=== PATIENT | female | born 1945 | race Hispanic/Latino ===

== ENCOUNTER 2019-01-27 06:27 | Day surgery (SDC) | payer MEDICARE ==
[2019-01-26 10:26] VITALS: BMI 22.6
--- NOTE | 2019-01-26 14:06 | HP ---
HISTORY OF PRESENT ILLNESS: Ms. Kennedy is a very pleasant 73-year-old woman and sister of one of her anesthesiologist here in town, Dr. Frey. She is referred by Dr. Resendiz for evaluation of bilateral L4 radicular patterns of pain as well as localized back pain. She has had excellent relief with each injection, but the pain has increasing. She has an MRI from [facility] in [place], where she has bilateral neuroforaminal narrowing at L4-L5 as well as lateral recess stenosis at L3-L4 and L4-L5. Flexion-extension imaging reveals a mild grade 1 slip at L4-L5, which is stable with all movement. She hopes to discuss surgical intervention at this time. PAST MEDICAL HISTORY: Significant for hypothyroidism, diabetes, gastroesophageal reflux disease. CURRENT MEDICATIONS: [place] Thyroid, metformin, estrogen, testosterone implantable pellet, atorvastatin, omeprazole, Neurontin. PAST SURGICAL HISTORY: Hysterectomy, cataracts bilaterally, left wrist reduction and plate. ALLERGIES: SULFA DRUGS AND CIPRO. PHYSICAL EXAMINATION: GENERAL: The patient is alert and oriented x3. EXTREMITIES: Gait is mildly antalgic. Lower extremity motor exam is normal. ASSESSMENT: Lumbar stenosis with radiculopathy. PLAN: Dr. Boyle met with the patient, reviewed imaging, advocated for an L3-L5 decompression. He explained to the patient the risks, benefits, and alternatives to the procedure. The patient expressed understanding for surgery and elected to move forward with surgery as discussed. I do believe the patient is mentally competent and capable of making medical decisions for herself. We will move forward with surgery as planned. Job ID: [id number]
[2019-01-27] MEDS ORDERED: ceFAZolin Sodium (SDC) 2 GM/100 ML BAG ONE ×2 (08:09→12:59)
[2019-01-27] MEDS ORDERED: Thrombin 5000 UNITS/5 ML VIAL ONE (09:10)
[2019-01-27] MEDS ORDERED: Midazolam HCl 2 mg/2 ml Vial ONE (09:20)
--- NOTE | 2019-01-27 09:52 | PRG ---
DATE OF SERVICE: 01/27/2019 Ms. Kennedy is a pleasant 73-year-old female who was referred to us by Dr. Fernando Resendiz for symptoms of predominantly neurogenic claudication. He has been treating her for years with epidural steroid injections and they have reached a point where they have lost effectiveness. The patient has been seen in our clinic in the outpatient setting by Forest Scales who evaluated her and reviewed the images and she indicated wished to move forward with surgery, which in her situation would be a 2-level lumbar decompression spanning L3 through L5. I subsequent to that time called and spoke to her on the phone to again review with her, her imaging, diagnosis, symptoms and the planned surgical procedure. She provided informed consent over the phone at that time. I met with her in person this morning to again review all of these elements. She continues to have symptoms with her right leg bothers her more than the left. She has symptoms of neurogenic claudication as well as lumbar radiculopathy. She has an MRI scan, which shows moderate to severe stenosis spanning L3 through L5. The plan will be to perform a L3 through L5 lumbar decompression. Job ID: [id number]
[2019-01-27] MEDS ORDERED: Fentanyl 250 MCG/5 ML VIAL ONE (10:03)
[2019-01-27] MEDS ORDERED: Bupivacaine HCl 0.5%/Epinephrine 1:200,000/PF 30 ml Vial ONE (10:19)
[2019-01-27] MEDS ORDERED: Fentanyl 100 MCG/2 ML VIAL ONE (12:05)
--- NOTE | 2019-01-27 12:06 | OP ---
DATE OF PROCEDURE: 01/27/2019 REPEAT PHOTOCOMPOSING MACHINE OPERATOR: Forest Scales PA-C. INDICATION: Pain. DIAGNOSIS: Lumbar stenosis with lumbar radiculopathy and neurogenic claudication. PROCEDURE PERFORMED: L3 through L5 lumbar decompression. ANESTHESIA: General. DESCRIPTION OF PROCEDURE: The patient was brought into the operating room and placed under general anesthesia. She was flipped from the supine to prone position on the operating room table. A linear incision was planned over the L3 to L5 segment. After prepping and draping and after an appropriate preoperative pause, the incision was created. The soft tissues were swept away from midline. A self-retaining retractor was placed in the wound for optimal exposure. C-arm images obtained to confirm the appropriate level. An Adson rongeur was used to remove the spinous process of L4, in the inferior aspect of L3 and the superior aspect of L5. The laminectomies were completed using Kerrison as well as a high-speed cutting drill bit. The laminectomies were extended laterally to encompass the medial third of the facet joint at L4-L5 and L3-L4. The greatest degree of stenosis was the L3-L4 and to a lesser extent of L4-L5. There was also motion at L3-L4 consistent with what was observed on preoperative films. After decompressing, the wound was irrigated. Hemostasis was maintained throughout. The wound was then closed in anatomic layers and a pressure dressing was applied. There were no known procedural complications. Job ID: [id number]
[2019-01-27] MEDS ORDERED: PROPOFOL 200 MG/20 ML VIAL ONE (17:25)
[2019-01-27] MEDS ORDERED: Ketorolac Tromethamine 30 MG/ML VIAL ONE (17:25)
[2019-01-27] MEDS ORDERED: Rocuronium Bromide 10 MG/ML (10ML VIAL) ONE (17:25)
[2019-01-27] MEDS ORDERED: Glycopyrrolate 0.2 MG/ML 5 ML SYRINGE ONE (17:25)
[2019-01-27] MEDS ORDERED: Dexamethasone 20 MG/5 ML VIAL ONE (17:25)
== END 2019-01-27 13:35 | disposition home or self-care (01) ==
LOC: SDC 06:27
PROVIDERS: ATTEND Neurological Surgery
PROC: 0ST20ZZ Resection of Lumbar Vertebral Disc, Open Approach (ICD-10-PCS; principal; 2019-01-27)
DX: M48.062 Spinal stenosis, lumbar region with neurogenic claudication (principal); M54.16 Radiculopathy, lumbar region; E03.9 Hypothyroidism, unspecified; E11.9 Type 2 diabetes mellitus without complications; K21.9 Gastro-esophageal reflux disease without esophagitis; Z79.84 Long term (current) use of oral hypoglycemic drugs; Z79.899 Other long term (current) drug therapy; Z88.1 Allergy status to other antibiotic agents; Z88.2 Allergy status to sulfonamides
CPT/HCPCS: 76000; 93005; 93010; J0131; J0670; J0690; J1100; J1885; J2250; J2704; J3010